=== PATIENT | male | born 1940 | race African-American/Black ===

== ENCOUNTER 2023-09-23 06:31 | Inpatient (IN) | payer OTHER ==
[~2023-09-23] VITALS: Ht 182.9 cm; Wt 86.0 kg
[2023-09-23 07:08] LABS: BASOPHILS % (AUTO) 0.4 % (0.0-2.0); EOSINOPHILS % (AUTO) 0.4 % (1.0-6.0); HEMATOCRIT 38.2 % (41-53); HEMOGLOBIN 12.8 g/dL (13.5-17.5); LYMPHOCYTES % (AUTO) 8.3 % (22.0-44.0); MEAN CORPUSCULAR HEMOGLOBIN 32.5 pg (26.0-34.0); MEAN CORPUSCULAR HGB CONC 33.5 G/dL (31.0-37.0); MEAN CORPUSCULAR VOLUME 97 fL (80-100); MONOCYTES # (AUTO) 0.6 K/uL (0.1-1.0); MONOCYTES % (AUTO) 4.9 % (2.0-9.0); NEUTROPHILS # (AUTO) 10.6 K/uL (1.8-7.7); PLATELET COUNT (AUTO) 349 K/uL (150-450); RED BLOOD CELL COUNT(AUTO) 3.94 MIL/uL (4.50-5.90); RED CELL DISTRIBUTION WIDTH 13.2 % (11.5-14.5); WHITE BLOOD COUNT (AUTO) 12.3 K/uL (4.5-11.0)
[2023-09-23] MEDS ORDERED: SODIUM CHLORIDE 0.9% 0 ML ONE (07:16)
[2023-09-23] MEDS ORDERED: IOHEXOL 350 MG/ML 100 ML VIAL ONE (07:16)
[2023-09-23 07:25] LABS: CREATININE 2.1 mg/dL (0.60-1.30); POTASSIUM 4.7 mmol/L (3.5-5.1)
[2023-09-23] MEDS: ACETAMINOPHEN 500 MG TABLET PO ONE (07:26)
[2023-09-23] MEDS: FAMOTIDINE 20 MG/2 ML VIAL IVP ONE (07:27)
[2023-09-23] MEDS: MAG HYDROX/ALUMINUM HYD/SIMETH 30 ML SUSPENSION UDCUP PO ONE (07:27)
[2023-09-23 07:32] LABS: ALBUMIN 3.5 g/dL (3.4-5.0); BILIRUBIN,TOTAL 0.6 mg/dL (0.1-1.0); MAGNESIUM 2.6 mg/dL (1.80-2.40); TOTAL PROTEIN, SERUM 9.1 g/dL (6.4-8.2)
[2023-09-23 07:33] LABS: TROPONIN I-HIGH SENSITIVITY 25 ng/L (<76)
[2023-09-23] MEDS ORDERED: TAMS0.4C94 PO (07:44)
[2023-09-23] MEDS ORDERED: ATOR40TA28 PO (07:44)
[2023-09-23] MEDS ORDERED: AMLO-257 PO (07:44)
[2023-09-23] MEDS: SODIUM CHLORIDE 0.9% 1,000 ML IV ONE (07:46)
[2023-09-23 08:09] LABS: RBC MORPHOLOGY COMMENT NORMAL RBC MORPH
[2023-09-23] MEDS: ONDANSETRON HCL 4 MG/2 ML VIAL IVP ONE (08:23)
[2023-09-23] MEDS: MORPHINE SULFATE 2 MG/ML SYRINGE IVP ONE ×2 (08:24→11:46)
[2023-09-23 08:31] LABS: COVID AG,FIA SOURCE NASAL SWAB
[2023-09-23 09:01] LABS: SARS-COV2 (COVID) ANTIGEN,FIA Negative (Negative)
[2023-09-23] MEDS ORDERED: ACETAMINOPHEN 325 MG TABLET PO PRN ×2 (13:45→14:45)
[2023-09-23] MEDS ORDERED: 0.9% SODIUM CHLORIDE 10 ML SYRINGE IVP PRN (13:45)
[2023-09-23] MEDS ORDERED: ONDANSETRON HCL 4 MG/2 ML VIAL IVP PRN (13:45)
[2023-09-23 16:00] VITALS: BP 134/81; PULSE 134; RESP 18; TEMP 98
[2023-09-23] MEDS: HEPARIN SODIUM,PORCINE 5,000 UNITS/ML VIAL SQ SCH (18:01)
[2023-09-23 20:07] VITALS: BP 137/86; PULSE 109; RESP 18; TEMP 98.7
[2023-09-23] MEDS: DOCUSATE SODIUM 100 MG/10 ML LIQUID UDCUP NG SCH (20:39)
[2023-09-23 21:16] VITALS: O2SAT 95
[2023-09-24] MEDS: SODIUM CHLORIDE 0.9% 1,000 ML IV SCH (00:18)
[2023-09-24 04:44] VITALS: BP 141/86; PULSE 105; RESP 18; TEMP 98.7
[2023-09-24 07:39] LABS: CALCIUM, TOTAL 9.3 mg/dL (8.8-10.5); CREATININE 2.3 mg/dL (0.60-1.30); POTASSIUM 4.7 mmol/L (3.5-5.1)
[2023-09-24] MEDS: PANTOPRAZOLE SODIUM 40 MG/VIAL IVP SCH (08:04)
[2023-09-24 08:27] VITALS: BP 141/93; PULSE 108; RESP 18; TEMP 98.5
[2023-09-24 09:43] LABS: BASOPHILS % (AUTO) 0.3 % (0.0-2.0); EOSINOPHILS % (AUTO) 0.6 % (1.0-6.0); HEMATOCRIT 40.4 % (41-53); HEMOGLOBIN 13.4 g/dL (13.5-17.5); LYMPHOCYTES # (AUTO) 1.2 K/uL (1.0-4.8); LYMPHOCYTES % (AUTO) 15.5 % (22.0-44.0); MEAN CORPUSCULAR HGB CONC 33.2 G/dL (31.0-37.0); MEAN CORPUSCULAR VOLUME 97 fL (80-100); MONOCYTES # (AUTO) 0.7 K/uL (0.1-1.0); MONOCYTES % (AUTO) 9.1 % (2.0-9.0); NEUTROPHILS # (AUTO) 5.8 K/uL (1.8-7.7); NEUTROPHILS % (AUTO) 74.5 % (40.0-70.0); PLATELET COUNT (AUTO) 358 K/uL (150-450); RED BLOOD CELL COUNT(AUTO) 4.19 MIL/uL (4.50-5.90); RED CELL DISTRIBUTION WIDTH 13.3 % (11.5-14.5); WHITE BLOOD COUNT (AUTO) 7.8 K/uL (4.5-11.0)
[2023-09-24 19:53] VITALS: BP 124/71; PULSE 111; RESP 18; TEMP 98.9
[2023-09-24] MEDS: PIPERACILLIN SODIUM/TAZOBACTAM 2.25 GM in DEXTROSE 5%-WATER 50 ML IV SCH (22:13)
[2023-09-25] MEDS: ONDANSETRON HCL 4 MG/2 ML VIAL IVP PRN (02:44)
[2023-09-25 05:15] VITALS: BP 133/75; PULSE 109; RESP 20; TEMP 98.6
[2023-09-25 08:03] VITALS: BP 130/80; PULSE 108; RESP 20; TEMP 98.5
[2023-09-25 16:13] VITALS: BP 135/84; PULSE 106; RESP 20; TEMP 98.3
[2023-09-25 19:22] VITALS: BP 125/70; PULSE 106; RESP 15; TEMP 97.8
[2023-09-26 09:36] LABS: CALCIUM, TOTAL 8.7 mg/dL (8.8-10.5); CREATININE 1.41 mg/dL (0.60-1.30); POTASSIUM 3.9 mmol/L (3.5-5.1)
[2023-09-26 10:01] VITALS: BP 137/72; PULSE 89; RESP 18; TEMP 97.8
[2023-09-26 16:15] VITALS: BP 136/70; PULSE 85; RESP 18; TEMP 97.9
[2023-09-26 19:50] VITALS: BP 134/64; PULSE 86; RESP 18; TEMP 98
[2023-09-27 04:40] VITALS: BP 129/73; PULSE 80; RESP 20; TEMP 98.1
[2023-09-27] MEDS ORDERED: BENZOCAINE/MENTHOL LOZENGE PO PRN (06:15)
[2023-09-27 09:38] VITALS: BP 135/68; PULSE 79; RESP 18; TEMP 98.3
[2023-09-27] MEDS: DEXTROSE 5%-0.45% SODIUM CHL 1,000 ML IV SCH (09:52)
[2023-09-27] MEDS ORDERED: DOCU-385 PO (11:39)
== END 2023-09-27 14:06 | disposition home or self-care (01) | DRG 389 ==
LOC: EMS 06:31 → 6S 13:28
PROVIDERS: ADMIT Internal Medicine; ATTEND Internal Medicine
PROC: 0D9670Z Drainage of Stomach with Drainage Device, Via Natural or Artificial Opening (ICD-10-PCS; principal; 2023-09-23)
DX: K56.609 Unspecified intestinal obstruction, unspecified as to partial versus complete obstruction (principal); J98.11 Atelectasis; N17.9 Acute kidney failure, unspecified; I10 Essential (primary) hypertension; K80.20 Calculus of gallbladder without cholecystitis without obstruction; Z20.822 Contact with and (suspected) exposure to COVID-19; N40.0 Benign prostatic hyperplasia without lower urinary tract symptoms; E78.5 Hyperlipidemia, unspecified
CPT/HCPCS: 71045; 74018; 74176; 80048; 80053; 82550; 83690; 83735; 83880; 84484; 85025; 93005; 99285; C9113; J1644; J2270; J2405; J2543; J3490; J7030; J7050; J7060; Q9967; 36415-L1; 36415-TC